=== PATIENT | female | born 1975 | race Caucasian/White ===

== ENCOUNTER 2018-03-31 12:32 | Emergency (ER) | payer MEDICARE, MEDICAID ==
[~2018-03-31] VITALS: Ht 172.7 cm; Wt 109.1 kg
[~2018-03-31 12:32] MED LIST: GABAPENTIN400 M2 PO; LISINOP/HCTZ1 TA2 PO; NORCO1 TA2 PO; TRAZODONE100 MG PO; VISTARIL 50MG C50 M1 PO; WELLBUTRIN XL300 MG
[2018-03-31] MEDS ORDERED: DOXYCYC MONO100 M1 PO ×2 (12:54→13:10)
[2018-03-31] MEDS ORDERED: REMERON15 MG PO (12:57)
[2018-03-31] MEDS ORDERED: TRILEPTAL150 M1 PO (12:58)
[2018-03-31] MEDS ORDERED: NEURONTIN400 MG PO (12:58)
[2018-03-31] MEDS ORDERED: INVEGA SUS234 MG/1.5 IM (12:59)
[2018-03-31] MEDS ORDERED: LISINOP/HCTZ1 TA2 PO (13:00)
[2018-03-31] MEDS ORDERED: VENTOLIN HFA IN (13:00)
[2018-03-31 13:20] VITALS: BP 113/87
== END 2018-03-31 13:20 | disposition home or self-care (01) ==
LOC: ED 12:32
DX: M79.621 Pain in right upper arm (principal); T43.595A Adverse effect of other antipsychotics and neuroleptics, initial encounter; F31.9 Bipolar disorder, unspecified; I10 Essential (primary) hypertension; J45.909 Unspecified asthma, uncomplicated; F43.10 Post-traumatic stress disorder, unspecified; F17.210 Nicotine dependence, cigarettes, uncomplicated